=== PATIENT | female | born 1935 | race Caucasian/White ===

== ENCOUNTER 2019-06-18 10:32 | Emergency (ER) | payer MEDICARE, OTHER ==
[2019-06-18] MEDS ORDERED: Sodium Chloride 0.9% 10 ML Syringe FLUSH PRN (10:41)
--- NOTE | 2019-06-18 10:52 | EDM.PDOC ---
ED HPI GENERAL MEDICAL PROBLEM - General Chief Complaint: Chest Pain Stated Complaint: chest pain Time Seen by Provider: 06/18/19 10:40 Source of Information: Reports: Patient, EMS History Limitations: Reports: No Limitations - History of Present Illness INITIAL COMMENTS - FREE TEXT/NARRATIVE: Pt presents from SNF c/o chest pain, Pt with hx of cp. S/P fall left radial fx, and bruising to left side of forehead. No fall today no loc. CP in the center of her chest that goes to right shoulder. PT given ASA and ntg by ems prior to arrival Onset: Today Onset Date: 06/18/19 Onset Time: 09:45 Location: Reports: Chest Quality: Reports: Sharp Severity: Moderate Improves with: Reports: None Worsens with: Reports: Other (palpation ) Associated Symptoms: Reports: Chest Pain Treatments [employer]: Reports: Aspirin Mid-Sternal Chest Pain Score (Numeric/FACES): 6 - Related Data Allergies Allergy/AdvReac Type Severity Reaction Status Date / Time acetaminophen [From Tylenol] Allergy Dizziness Verified 06/18/19 10:49 metformin Allergy Nausea and Verified 06/18/19 10:49 Vomiting morphine Allergy Nausea and Verified 06/18/19 10:49 Vomiting Penicillins Allergy Dizziness Verified 06/18/19 10:49 pilocarpine Allergy Other Verified 06/18/19 10:49 tramadol Allergy Nausea Verified 06/18/19 10:49 Home Meds: Home Meds Diclofenac Sodium [Voltaren 1% Gel] 2 gram QID PRN 06/18/19 [History] Docusate Sodium [Colace] 100 mg BID 06/18/19 [History] Escitalopram [Lexapro] 10 mg DAILY 06/18/19 [History] Isosorbide Mononitrate [Imdur] 30 mg DAILY 06/18/19 [History] Levothyroxine 25 mcg DAILY 06/18/19 [History] Losartan [Cozaar] 75 mg DAILY 06/18/19 [History] Metoprolol Tartrate 25 mg BID 06/18/19 [History] Nitroglycerin [Nitrostat] 0.4 mg ASDIRECTED PRN 06/18/19 [History] atorvaSTATin Calcium [Lipitor] 40 mg DAILY 06/18/19 [History] glipiZIDE [Glucotrol] 2.5 mg DAILY 06/18/19 [History] oxyCODONE HCl [Oxycodone HCl] 2.5 mg Q4H PRN 06/18/19 [History] ED ROS GENERAL - Review of Systems Review Of Systems: See Below Constitutional: Reports: No Symptoms HEENT: Reports: No Symptoms Respiratory: Reports: No Symptoms Cardiovascular: Reports: Chest Pain Endocrine: Reports: No Symptoms GI/Abdominal: Reports: No Symptoms : Reports: No Symptoms Musculoskeletal: Reports: No Symptoms ED EXAM, GENERAL - Physical Exam Exam: See Below (Trop negative x 2) Exam Limited By: No Limitations General Appearance: Alert, WD/WN, No Apparent Distress Ears: Normal External Exam Nose: Normal Inspection Respiratory/Chest: No Respiratory Distress, Lungs Clear, Normal Breath Sounds, No Accessory Muscle Use Cardiovascular: Normal Peripheral Pulses, Regular Rate, Rhythm, No Edema, No Gallop, No JVD, No Murmur, No Rub, Other (midsternal chest pain worsens with palpation, does radiate to right shoulder ) GI/Abdominal: Normal Bowel Sounds, Soft, Non-Tender, No Distention, No Abnormal Bruit, No Mass, Pelvis Stable Neurological: Alert, Oriented Psychiatric: Normal Affect, Normal Mood Skin Exam: Warm, Dry, Intact Lymphatic: No Adenopathy Course - Vital Signs Last Recorded V/S: Last Vital Signs Temp 37.0 C 06/18/19 10:32 Pulse 96 06/18/19 11:52 Resp 17 06/18/19 11:52 BP 95/52 L 06/18/19 11:52 Pulse Ox 96 06/18/19 11:52 - Orders/Labs/Meds Orders: Active Orders 24 hr Category Date Time Status EKG 12 Lead [EKG Documentation Completion] [RC] STAT Care 06/18/19 10:42 Active Chest 2V [CR] Stat Exams 06/18/19 10:43 Taken Sodium Chloride 0.9% [Saline Flush] Med 06/18/19 10:41 Active 10 ml FLUSH ASDIRECTED PRN Peripheral IV Insertion Adult [OM.PC] Routine Oth 06/18/19 10:41 Ordered Medication Orders Sodium Chloride (Saline Flush) 10 ml FLUSH ASDIRECTED PRN PRN Reason: Keep Vein Open Labs: Laboratory Tests 06/18/19 06/18/19 06/18/19 Range/Units 10:58 10:58 10:58 WBC 5.4 (4.0-10.0) x10^3/uL RBC 3.43 L (4.00-5.50) x10^6/uL Hgb 10.6 L (12.0-16.0) g/dL Hct 31.4 L (33.0-47.0) % MCV 91.5 (78.0-93.0) fL MCH 30.9 (26.0-32.0) pg MCHC 33.8 (32.0-36.0) g/dL RDW Coeff of Rachel 12.3 (10.0-15.0) % Plt Count 230 (130-400) x10^3/uL Neut % (Auto) 53.8 (50.0-80.0) % Lymph % (Auto) 32.6 (25.0-50.0) % [place] % (Auto) 9.9 (2.0-11.0) % Eos % (Auto) 3.1 (0.0-4.0) % Baso % (Auto) 0.6 (0.2-1.2) % PT 11.6 (10.0-12.8) SEC INR 1.0 L (2.0-3.5) Sodium 139 (136-145) mmol/L Potassium 4.3 (3.5-5.1) mmol/L Chloride 102 (98-107) mmol/L Carbon Dioxide 28 (21-32) mmol/L Anion Gap 13.3 (10-20) mmol/L BUN 16 (7-18) mg/dL Creatinine 0.9 (0.55-1.02) mg/dL Est Cr Clr Drug Dosing TNP Estimated GFR (MDRD) 60 Glucose 138 H (74-106) mg/dL Calcium 9.6 (8.5-10.1) mg/dL Troponin I < 0.017 (<=0.056) ng/mL 06/18/19 Range/Units 15:02 WBC (4.0-10.0) x10^3/uL RBC (4.00-5.50) x10^6/uL Hgb (12.0-16.0) g/dL Hct (33.0-47.0) % MCV (78.0-93.0) fL MCH (26.0-32.0) pg MCHC (32.0-36.0) g/dL RDW Coeff of Rachel (10.0-15.0) % Plt Count (130-400) x10^3/uL Neut % (Auto) (50.0-80.0) % Lymph % (Auto) (25.0-50.0) % [place] % (Auto) (2.0-11.0) % Eos % (Auto) (0.0-4.0) % Baso % (Auto) (0.2-1.2) % PT (10.0-12.8) SEC INR (2.0-3.5) Sodium (136-145) mmol/L Potassium (3.5-5.1) mmol/L Chloride (98-107) mmol/L Carbon Dioxide (21-32) mmol/L Anion Gap (10-20) mmol/L BUN (7-18) mg/dL Creatinine (0.55-1.02) mg/dL Est Cr Clr Drug Dosing Estimated GFR (MDRD) Glucose (74-106) mg/dL Calcium (8.5-10.1) mg/dL Troponin I < 0.017 (<=0.056) ng/mL Meds: Medications Generic Name Dose Route Start Last Admin Trade Name Freq PRN Reason Stop Dose Admin Sodium Chloride 10 ml 06/18/19 10:41 Saline Flush FLUSH ASDIRECTED PRN Keep Vein Open Departure - Departure Time of Disposition: 15:43 Disposition: Home, W Home Health Agency 06 Condition: Good Clinical Impression: Non-cardiac chest pain Instructions: Nonspecific Chest Pain, [id number] Referrals: Jelly Hale MD [Primary Care Provider] - Forms: ED Department Discharge - My Orders Last 24 Hours: My Active Orders 06/18/19 10:41 Sodium Chloride 0.9% [Saline Flush] 10 ml FLUSH ASDIRECTED PRN Peripheral IV Insertion Adult [OM.PC] Routine 06/18/19 10:42 EKG 12 Lead [EKG Documentation Completion] [RC] STAT 06/18/19 10:43 Chest 2V [CR] Stat - Assessment/Plan Last 24 Hours: My Active Orders 06/18/19 10:41 Sodium Chloride 0.9% [Saline Flush] 10 ml FLUSH ASDIRECTED PRN Peripheral IV Insertion Adult [OM.PC] Routine 06/18/19 10:42 EKG 12 Lead [EKG Documentation Completion] [RC] STAT 06/18/19 10:43 Chest 2V [CR] Stat
[2019-06-18 11:29] LABS: CHLORIDE,CL 102 mmol/L (98-107); SODIUM,NA 139 mmol/L (136-145)
[2019-06-18 11:51] LABS: ANION GAP 13.3 mmol/L (10-20)
--- NOTE | 2019-06-19 09:52 | CR ---
[id number] RAD/RAD Chest PA And Lateral EXAM: RAD Chest PA And Lateral INDICATION: CHEST PAIN THROUGH BACK. COMPARISON: None. DISCUSSION: Cardiomediastinal silhouette is normal in size and contour. No infiltrate, effusion, pneumothorax, or edema. Low lung volumes associated vascular crowding. IMPRESSION: No acute cardiopulmonary abnormality. Justus Morataya DO 06/19/19 0951 Thank you for allowing us to participate in the care of your patient.
== END 2019-06-18 16:41 | disposition home health service (06) ==
LOC: VM.ED 10:32
DX: R07.89 Other chest pain (principal); Z88.8 Allergy status to other drugs, medicaments and biological substances; Z88.6 Allergy status to analgesic agent; Z88.5 Allergy status to narcotic agent; Z88.0 Allergy status to penicillin; Z79.899 Other long term (current) drug therapy; Z79.84 Long term (current) use of oral hypoglycemic drugs
CPT/HCPCS: 36415; 71046; 80048; 84484; 85025; 85610; 93005; 99284-GF; 99285-25